=== PATIENT | female | born 1985 | race Hispanic/Latino ===

== ENCOUNTER → 2019-10-31 08:13 | Outpatient (CLI) | payer OTHER, SELFPAY ==
--- NOTE | 2019-10-31 | DI.MRI.S_ITS ---
PROCEDURE: MR LUMBAR SPINE WO CON INDICATIONS: Low back pain TECHNIQUE: Noncontrast sagittal T1 spin echo and T2 fast echo, sagittal STIR, axial T1 and T2 fast spin echo through the lumbar spine. In cases with scoliosis, additional coronal T2 fast spin echo may be performed. COMPARISON: [facility], CR, ABDOMEN 2 VIEW, 05/12/2010, 10:36. FINDINGS: Image quality: Excellent. Alignment and Curvature: There are 5 lumbar type vertebral bodies by plain film, with a transitional element at S1. The numbering system will be as denoted on the montage panel. Recommend correlation with plain films and the montage panel for numbering purposes prior to any lumbar spinal intervention. Bone Marrow: Marrow is of normal overall signal. No acute vertebral body compression fractures. Mild reactive signal within the endplates adjacent to the L5-S1 intervertebral disc. Spinal Cord: Conus medullaris terminates at the lower L2 level. Visualized cord demonstrates normal signal and size. Paraspinous Soft Tissues: No paravertebral masses. L1-L2: Normal appearance. L2-L3: Normal appearance. L3-L4: Normal appearance. L4-L5: Mild facet hypertrophy. No significant canal, nor foraminal stenosis. L5-S1: Moderate disc height loss and desiccation. Mild diffuse disc bulge. Mild bilateral facet hypertrophy. Mild canal stenosis. Mild left greater than right foraminal stenosis. IMPRESSION: 1. Transitional anatomy at the lumbosacral junction as described above. Recommend correlation with plain films and the montage panel for numbering purposes prior to any lumbar spinal intervention. 2. Multilevel degenerative disc and facet disease, as well as ligamentum flavum hypertrophy and epidural lipomatosis. 3. Mild multilevel canal and foraminal stenoses. No neural impingement. Dictated by: Lisseth Goodwin M.D. on 10/31/2019 at 8:41 Approved by: Lisseth Goodwin M.D. on 10/31/2019 at 8:45
== END ==
PROVIDERS: PCP Family Medicine; Referring Provider Family Medicine; Visit Provider Family Medicine
DX: M54.5 Low back pain (principal); M51.37 Other intervertebral disc degeneration, lumbosacral region; M48.07 Spinal stenosis, lumbosacral region; E88.2 Lipomatosis, not elsewhere classified
CPT/HCPCS: 72148

== ENCOUNTER 2020-10-13 13:00 | Emergency (ER) | payer OTHER, SELFPAY ==
[2020-10-13 13:03] VITALS: BP 124/93; PULSE 81; RESP 24; TEMP 37.1; O2SAT 100
--- NOTE | 2020-10-13 14:24 | DI.US.S_ITS ---
PROCEDURE: US PELVIC COMPLETE INDICATIONS: PAIN; POSSIBLE TORSION TECHNIQUE: Real-time scanning was performed of the pelvic organs, with image documentation. Additional endovaginal scanning was necessary due to incomplete visualization of the adnexal and endometrial structures by transabdominal scanning. COMPARISON: [facility], US, PELVIC COMPLETE, 08/04/2014, 16:06. FINDINGS: Uterus: Uterus is normal in size at 8.0 x 4.0 x 5.2 cm. The endometrium measures 8.4 mm in combined thickness. Ovaries: Both ovaries show appropriate vascularity without evidence of torsion. The right and left ovaries measure 4.2 x 3.9 x 3.0 cm and 5.4 x 3.2 x 4.0 cm respectively. There is a complex right ovarian cyst measuring 2.7 x 2.0 cm, probable hemorrhagic cyst, and there is a 4.1 x 3.7 cm left ovarian simple cyst present. Other: No pathologic free abdominal or pelvic fluid. IMPRESSION: 1. No evidence of ovarian torsion. 2. Complex right ovarian cyst 2.7 cm, probable hemorrhagic cyst 3. Left ovarian 4.1 cm simple cyst Dictated by: Marino Benedict M.D. on 10/13/2020 at 14:36 Approved by: Marino Benedict M.D. on 10/13/2020 at 14:38
--- NOTE | 2020-10-13 16:55 | ED_ITS ---
HPI - Abdominal Pain General Chief Complaint: Abdominal Pain Stated Complaint: lower ABD pain, sent by Monday Time Seen by Provider: 10/13/20 16:55 Source: patient Mode of arrival: Ambulatory History of Present Illness HPI narrative: This is a 35-year-old female who comes emergency department complaint of lower abdominal pain. Patient was sent here by Monday, patient's case was discussed with myself by physician treating her at the outside facility. Patient had lab works including CBC, CMP and lipase, point of care urine is well as testing which did not show any acute causes or findings patient had CT abdomen pelvis which did show ovarian cyst. Patient was sent for ultrasound to rule out torsion. Patient did have 1 Percocet prior to transfer. Patient is quite uncomfortable initially upon arrival. It has been many hours since she had any pain medication. Patient states she pain for several days, she has had nausea without vomiting. She has been afebrile. She denies chest pain or shortness of breath. Patient has not had any major changes to stool. She is not having any vaginal discharge or bleeding currently. She did have complaint of dysuria. Related Data Home Medications Medication Instructions Recorded Confirmed albuterol sulfate 90 mcg/actuation 1 puff IH PRN #0 11/23/12 03/31/20 aerosol inhaler (Proventil HFA) budesonide-formoterol HFA 80 2 puff INHALATION ONCE gram 09/25/18 03/31/20 mcg-4.5 mcg/actuation aerosol inhaler (Symbicort) Previous Rx's Medication Instructions Recorded oxycodone-acetaminophen 5 mg-325 1 tab PO Q6H PRN #10 tab 10/13/20 mg tablet (Percocet) Allergies Allergy/AdvReac Type Severity Reaction Status Date / Time Sulfa (Sulfonamide Allergy Verified 10/13/20 13:16 Antibiotics) From DILAUDID Allergy Unknown HIVES Uncoded 03/31/20 08:51 From VICODIN Allergy Unknown HIVES Uncoded 03/31/20 08:51 GLUTEN Allergy Unknown Uncoded 03/31/20 08:51 Latex Allergy Unknown RASH Uncoded 03/31/20 08:51 NAPROXEN Allergy Unknown HIVES/WHEEZ Uncoded 03/31/20 08:51 E WHEAT Allergy Unknown Uncoded 03/31/20 08:51 IBUPROFEN AdvReac Mild Uncoded 03/31/20 08:51 Review of Systems Review of Systems ROS Unobtainable: All systems reviewed & are unremarkable except as noted in HPI and below Patient History Surgical History Status post delivery (08/28/08) Status post delivery (11/23/12) Status post hernia repair Social History Smoking Status: Never smoker Smoking Status: Never smoker Exam Narrative Exam Narrative: GENERAL: Alert and oriented x three, female in mild distress. HEENT: Head normocephalic, atraumatic, EOMI, pupils reactive, face symmetric, moist mucous membranes NECK: Supple, full range of motion CARDIOVASCULAR: Regular rate and rhythm without murmurs, rubs or gallops. RESPIRATORY: Breath sounds equal bilaterally, no wheezes rales or rhonchi. ABDOMEN: Soft, nontender. Normoactive bowel sounds all 4 quadrants. No guarding or rebound, rigidity, no mass : No CVA tenderness EXTREMITIES: Normal range of motion, no clubbing or edema. Neurovascularly intact NEUROLOGICAL: Cranial nerves II through XII grossly intact. Moving all extremities SKIN: Warm, dry, no petechiae, no rashes or lesions. Initial Vital Signs Initial Vital Signs: Vital Signs Temperature 98.7 F 10/13/20 13:03 Pulse Rate 81 10/13/20 13:03 Respiratory Rate 24 10/13/20 13:03 Blood Pressure 124/93 H 10/13/20 13:03 Pulse Oximetry 100 10/13/20 13:03 Course Orders Ordered: Discontinued Medications Diphenhydramine HCl (Diphenhydramine 25 Mg Tablet) 25 mg PO NOW ONE Stop: 10/13/20 17:10 Last Admin: 10/13/20 17:14 Dose: 25 mg Documented by: LAMONT Oxycodone/Acetaminophen (Oxycodone/Acetaminophen 5/325 Tablet) 1 tab PO NOW ONE Stop: 10/13/20 17:10 Last Admin: 10/13/20 17:14 Dose: 1 tab Documented by: LAMONT Vital Signs Vital signs: Vital Signs - 8 hr 10/13/20 13:03 Temperature 98.7 F Pulse Rate 81 Respiratory Rate 24 Blood Pressure 124/93 H Pulse Oximetry 100 MDM - Abdominal Pain Imaging Data US - MEDIC TECHNICIAN: Radiologist's Impression: [address] [id number] ReportSigned Patient: Jordyn Hackett KMR#: [id number]: 1985Acct:[id number]/Sex: 35 / FDate of Service: 10/13/20Loc: EDAccession Number: [id number] Procedure: US pelvic complete Ordering Provider: Sarah Resendez D.O. PROCEDURE: US PELVIC COMPLETE INDICATIONS: PAIN; POSSIBLE TORSION TECHNIQUE: Real-time scanning was performed of the pelvic organs, with image documentation. Additional endovaginal scanning was necessary due to incomplete visualization of the adnexal and endometrial structures by transabdominal scanning. COMPARISON: [facility], US, PELVIC COMPLETE, 08/04/2014, 16:06. FINDINGS: Uterus: Uterus is normal in size at 8.0 x 4.0 x 5.2 cm. The endometrium measures 8.4 mm in combined thickness. Ovaries: Both ovaries show appropriate vascularity without evidence of torsion. The right and left ovaries measure 4.2 x 3.9 x 3.0 cm and 5.4 x 3.2 x 4.0 cm respectively. There is a complex right ovarian cyst measuring 2.7 x 2.0 cm, probable hemorrhagic cyst, and there is a 4.1 x 3.7 cm left ovarian simple cyst present. Other: No pathologic free abdominal or pelvic fluid. IMPRESSION: 1. No evidence of ovarian torsion. 2. Complex right ovarian cyst 2.7 cm, probable hemorrhagic cyst 3. Left ovarian 4.1 cm simple cyst Dictated by: Marino Benedict M.D. on 10/13/2020 at 14:36 Approved by: Marino Benedict M.D. on 10/13/2020 at 14:38 [facility] Narrative Medical decision making narrative: Patient's labs, point of care urine, urinalysis and CT imaging were all reviewed. Patient had some mesenteric adenitis, bilateral ovarian cysts. Report and labs were all sent with the patient and reviewed and confirmed by myself. Patient's ultrasound here shows no ovarian torsion, complex right ovarian cyst 2.7cm likely hemorrhagic and left ovarian 4.1cm simple cyst. Patient is uncomfortable but exam findings do not seem consistent with torsion. Patient states she had quite a bit of improvement with a dose of Percocet at the outside facility and a single dose was given here. Reviewed patient's findings. She does have a complex right ovarian cyst and we were discussed that this does need follow-up for further evaluation with OBGYN, she also has a left ovarian 4.1 cm simple cyst. All questions answered patient feels comfortable to return home at this time. Discharge Plan Departure Patient Disposition: Home Clinical Impression: Complex cyst of right ovary Instructions: DI for Ovarian Cyst Activity Restrictions/Additional Instructions: Follow up in the next 1-2 weeks for recheck of your ovarian cyst. Your imaging today shows a right ovarian cyst which is complex and appears to be hemorrhagic. This is likely the cause of your pain. Because your cyst is complex or has more than 1 portion we should have follow- up. It is noted you have left simple ovarian cyst. Take pain medications as prescribed. This medication can make you sleepy do not drive, perform hazardous activities or make any major decisions while taking it. This medication will make you constipated please take a stool softener once to twice daily until stools are soft and regular. Prescription [facility] Please return for fevers, rapidly worsening pain, lightheadedness or passing out, persistent vomiting, black or bloody stools or other new or concerning symptoms. Prescriptions: New oxycodone-acetaminophen [Percocet] 5-325 mg tablet 1 tab PO Q6H PRN (Reason: pain) Qty: 10 RF: 0 No Action albuterol sulfate [Proventil HFA] 90 MCG/PUFF HFA aerosol inhaler 1 puff IH PRN Qty: 0 RF: 0 Symbicort 80-4.5 mcg/actuation HFA aerosol inhaler 2 puff INHALATION ONCE RF: 0 Referrals: Sarah Reyna MD [Primary Care Provider] - Lauren Bowling MD [Physician] -
[2020-10-13] MEDS: OXYCODONE/ACETAMINOPHEN 5/325 TABLET 1 TAB PO (17:14)
[2020-10-13] MEDS: diphenhydrAMINE 25 MG TABLET PO (17:14)
[2020-10-13 17:48] VITALS: BP 148/78; PULSE 72; RESP 16; O2SAT 99
== END 2020-10-13 17:51 | disposition home or self-care (01) ==
PROVIDERS: Emergency Provider Emergency Medicine; PCP Family Medicine
DX: N83.291 Other ovarian cyst, right side (principal)
CPT/HCPCS: 76830; 76856; 99283

== ENCOUNTER → 2020-12-07 15:17 | Outpatient (CLI) | payer OTHER, SELFPAY ==
[2020-12-07 17:53] LABS: Cancer Antigen 125 7.9 U/mL (0-35)
[2020-12-07 17:59] LABS: Luteinizing Hormone 8.89 mIU/mL
== END ==
PROVIDERS: PCP Family Medicine; Referring Provider Obstetrics & Gynecology; Visit Provider Obstetrics & Gynecology
DX: N83.202 Unspecified ovarian cyst, left side (principal)
CPT/HCPCS: 36415; 83001; 83002; 86304

== ENCOUNTER → 2021-02-24 16:43 | Outpatient (CLI) | payer OTHER, SELFPAY ==
[2021-02-24 19:57] LABS: COVID19 -Nasal RAPID Negative (Negative)
== END ==
PROVIDERS: PCP Family Medicine; Referring Provider Specialist; Visit Provider Specialist
DX: Z01.812 Encounter for preprocedural laboratory examination (principal); Z20.822 Contact with and (suspected) exposure to COVID-19
CPT/HCPCS: 87635

== ENCOUNTER 2021-02-25 06:35 | Day surgery (SDC) | payer OTHER, SELFPAY ==
[2021-02-18 08:34] VITALS: BMI 43.0
[2021-02-25] VITALS (18 sets, daily range): BP systolic 107–130; BP diastolic 55–87; PULSE 59–104; RESP 12–20; TEMP 36.1–36.8; O2SAT 93–100; BMI 43.0
--- NOTE | 2021-02-25 | PATH_ITS ---
[facility] Accession Number: [id number] . 01 Material submitted: . PART A: endocervix - ENDOCERVICAL CURETTINGS PART B: endometrium - ENDOMETRIAL CURETTINGS . 02 Diagnosis: A. Endocervical Curettings: Portions of secretory endometrium; negative for glandular hyperplasia, cytologic atypia, or malignancy. Some endometrial fragments demonstrate prominent vessels, suggestive of polyp, if clinical and imaging studies are concordant. No definite endocervical tissue identified. Please see comment. . B. Endometrial Curettings: Portions of secretory endometrium; negative for glandular hyperplasia, cytologic atypia, or malignancy. Some endometrial fragments demonstrate prominent vessels, suggestive of polyp, if clinical and imaging studies are concordant. MRV 03/02/2021 1056 Local . 02 Comment: Part A: Due to the scant nature of this biopsy, it may not be entirely electronics parts sales representative of this patient's endocervix; additional sampling could be considered, if clinically appropriate. . 02 Electronically signed: . Genoveva Williamson MD, Pathologist NPI- [id number] . 01 Gross description: . A. Specimen A is received in formalin labeled endocervical curettings and consists of multiple lam-pink fragments of soft tissue, measuring 2.0 x 1.0 x 0.3 cm in aggregate. The specimen is filtered and entirely submitted in cassette A1. B. Specimen B is received in formalin labeled endometrial curettings and consists of multiple lam-pink fragments of soft tissue and clotted blood, measuring 2.5 x 1.5 x 0.3 cm in aggregate. The specimen is filtered and entirely submitted in cassette B1. ([id number]) /[facility] 02/26/2021 1805 Local . 02 Pathologist provided ICD-10: N85.00 . 02 CPT . 819248, 181722 Performed at: 01 [facility] [address] [place] [address], [place], [place] [id number] MD Garfield Morales MD Phone: [phone] Performed at: 02 [facility] [address] [place], [place] [id number] MD Viola Toro MD Phone: [phone]
[2021-02-25] MEDS: LACTATED RINGERS 1,000 ML 84 ML IV ×2 (06:44→09:14)
--- NOTE | 2021-02-25 07:37 | P.HP_ITS ---
History of Present Illness History of Present Illness Date Patient Seen: 02/25/21 Time Patient Seen: 07:37 Chief complaint: PELVIC Narrative: Patient is a 35-year-old 3 para 2 with a persistent left ovarian cyst and a cervical polyp. She presents for a laparoscopic removal of the left ovarian cyst and a D&C hysteroscopy with removal of the cervical polyp. Patient History Medical History (Updated 02/18/21 @ 08:41 by Elina Erwin RN) Thyroid disease Surgical History Status post delivery (08/28/08) Status post delivery (11/23/12) Status post hernia repair Family & Social History Social History: household members significant other Tobacco & Substance use: Smoking Status Never smoker alcohol intake current alcohol intake frequency holiday/special occasion Substance Use Type does not use Meds Home Medications and Allergies Home Medications Medication Instructions Recorded Confirmed Type albuterol sulfate 90 mcg/actuation 1 puff IH PRN #0 11/23/12 02/25/21 History aerosol inhaler (Proventil HFA) cetirizine 10 mg tablet (Zyrtec) 10 mg PO DAILY PRN 12/07/20 02/25/21 History fluticasone propionate 50 2 spray INTRANASAL DAILY 12/07/20 02/25/21 History mcg/actuation nasal spray,suspension thyroid (pork) 15 mg tablet 15 mg PO DAILY 12/07/20 02/25/21 History ([employer] Thyroid) budesonide-formoterol HFA 160 2 inh INHALATION DAILY 02/25/21 02/25/21 History mcg-4.5 mcg/actuation aerosol inhaler (Symbicort) Allergies Allergy/AdvReac Type Severity Reaction Status Date / Time naproxen [From Naprosyn] Allergy Intermediate Wheezing Verified 02/25/21 07:00 Sulfa (Sulfonamide Allergy Verified 02/25/21 06:56 Antibiotics) From DILAUDID Allergy Unknown HIVES Uncoded 02/25/21 06:56 From VICODIN Allergy Unknown HIVES Uncoded 02/25/21 06:56 GLUTEN Allergy Unknown Uncoded 02/25/21 06:56 Latex Allergy Unknown RASH Uncoded 02/25/21 06:56 NAPROXEN Allergy Unknown HIVES/WHEEZ Uncoded 02/25/21 06:56 E WHEAT Allergy Unknown Uncoded 02/25/21 06:56 IBUPROFEN AdvReac Mild Uncoded 02/25/21 06:56 Exam Vital Signs (past 8 hours): - 02/25/21 07:01 Temperature 98.3 F Pulse Rate 88 Respiratory Rate 16 Blood Pressure 125/80 Pulse Oximetry 98 Oxygen Delivery Method Room Air Narrative Exam Narrative: HEENT: [No thyromegaly, no anterior cervical or supraclavicular lymphadenopathy.] Lungs:[Clear to auscultation bilaterally, no wheezes.] Cardiovascular: [Regular rate and rhythm, no murmurs, rubs, or gallops]. Abdomen: [Well-healed Pfannenstiel scars. No hepatosplenomegaly. No masses palpable.] External genitalia: [Normal] Vagina: [Normal] Cervix: [Normal] Bimanual exam: 7 Week size anteverted uterus. Mobile. Extremities: No edema Assessment & Plan Assessment & Plan narrative: Assessment: 35-year-old 3 para 2 with a persistent left ovarian cyst and a cervical polyp Plan: Laparoscopic removal of a left ovarian cyst, D&C hysteroscopy with removal of a cervical polyp. The risks, benefits, and alternatives to the procedure were explained to the patient. The risks of the procedure including bleeding, infection, injury to the bowel, bladder, or ureters, or uterine perforation were explained to the patient. The patient understands these risks and agrees to proceed. A full par Q was held and consent form was signed. COVID-19 COVID-19 status: Negative Result date/Date tested (Pos, Neg/Pending): 02/24/21 Time Spent With Patient Time with patient: less than 30 minutes Critical Care time: I spent a total of [] minutes of critical care time on this patient's care today; this time is exclusive of procedural time.
--- NOTE | 2021-02-25 07:40 | PM.PREOP ---
Pre-operative Note COVID-19 COVID-19 status: Negative Result date/Date tested (Pos, Neg/Pending): 02/24/21 Interval Note History & Physical reviewed/Exam performed by Physician: Yes Changes to H&P: No H&P completed within 30 days and has changed as indicated here:: 02/25/21
--- NOTE | 2021-02-25 08:25 | SUR.OPER ---
Lithotomy on padded OR bed, head on pillow, arms secured on padded arm boards at <90 degrees abduction. Legs secured in padded yellow fins stirrups.
[2021-02-25] MEDS: BUPIVACAINE 0.5% (PF) 30 ML, EPINEPHrine 0.15 MG INJ (08:34)
--- NOTE | 2021-02-25 08:50 | PM.GYNOP.1 ---
Operative Date/Time/Diagnoses Date of procedure: 02/25/21 Time of procedure: 08:50 Pre-op diagnosis: Persistent left ovarian cyst Endocervical polyp Post-op diagnosis: same Procedure & Clinicians Procedure: Procedures Operation Date: 02/25/21 07:45 Actual Procedure Side Surgeon p Laparoscopic aspiration of left Ovarian Cyst Left Lauren Bowling MD s Hysteroscopy D&C W/ Removal of Cervical Polyp Lauren Bowling MD Indications: Persistent left ovarian cyst Endocervical polyp Surgeon: Lauren Bowling Anesthesia Type: General and Local Operative Notes Findings: 6 week size anteverted uterus Normal tubes Normal right ovary 3 cm simple left ovarian cyst Normal liver and gallbladder Closure Type: primary Specimen(s): endometrial curettings and other (Endocervical polyp) Estimated blood loss (mL): 10 Blood products transfused: none Procedure in detail: After informed consent was obtained, the patient was taken to the operating room where she was placed in the dorsal supine position. After adequate general endotracheal anesthesia was achieved, she was placed in the dorsal lithotomy position, and prepped and draped in the usual sterile fashion. A bivalve speculum was placed into the vagina and the anterior lip of the cervix grasped with a single-tooth tenaculum. The cervical os was sequentially dilated until the Zumi uterine manipulator could pass easily into the endometrial cavity. The single-tooth tenaculum was removed from the anterior lip of the cervix. The bivalve speculum was removed from the vagina. Attention was turned to the abdomen where 6 cc of 0.5% Marcaine with epinephrine were injected in the umbilical fold. A 5 mm incision was made. The Veress needle was placed into the peritoneal cavity, and its placement confirmed by aspiration and drop test. The abdominal cavity was insufflated with 4.0 L of CO2. The Veress needle was removed, and a long 5 mm trocar was placed without difficulty. A second incision was made 4 cm lateral to umbilicus on the left side after 6 cc of 0.5% Marcaine with epinephrine were injected. A 5 mm trocar was placed under direct visualization. The probe was used to identify both ovaries. There was a simple ovarian cyst on the left ovary the right ovary was normal. The tubes were normal. The uterus was normal. The gallbladder and liver were normal. Using the point aspirated her, the cyst was aspirated approximately 30 cc of clear yellow fluid. The Endo Rustam were used to open the cyst wall and the cyst wall was cauterized with the tip of the Endo Rustam. Hemostasis was achieved. The instruments were removed from the abdomen. The CO2 was allowed to escape. The incisions were closed with 4 0 Monocryl in a subcuticular fashion. Steri-Strips and Allevyn dressings were placed. Attention was then turned to the vagina where the Zumi uterine manipulator was removed from the uterus. The cervical os was further dilated to the # 8 Hegar dilator. The hysteroscope passed easily into the endometrial cavity. There were no polyps or fibroids noted in the endometrial cavity. Upon removal of the hysteroscope there was found to be a polyp in the endocervical canal. The hysteroscope was removed. A polyp forceps was used to remove the polyp. The single-tooth tenaculum was removed from the anterior lip of the cervix. The bivalve speculum was removed from the vagina. Sponge, lap, and instrument counts were correct x2. Patient tolerated the procedure well, and was taken to PACU in stable condition. Complications: none Post-operative Condition: stable Disposition: PACU Plan for aftercare: Home after recovery
--- NOTE | 2021-02-25 09:07 | SUR.PHASEI ---
At 0902 patient rouseable, able to spit out oral airway spo2 wnl before and after, neuro assessed a/o x 4 other neuro intact.
[2021-02-25] MEDS: ALBUTEROL/IPRATROPIUM 3 ML AMPUL INH (09:12)
[2021-02-25] MEDS: fentaNYL 100 MCG/2 ML INJ IV ×4 (09:18→10:04)
[2021-02-25] MEDS: diphenhydrAMINE 50 MG/ML VIAL 25 MG IV ×2 (09:41→10:24)
--- NOTE | 2021-02-25 09:45 | SUR.OPER ---
Bilateral arms tucked with gel pads.
[2021-02-25] MEDS: LORazepam 2 MG/ML INJ 0.5 MG IV (09:48)
[2021-02-25] MEDS: FAMOTIDINE 20 MG/2 ML VIAL IV (09:58)
--- NOTE | 2021-02-25 10:25 | SUR.PHASEI ---
Dr. Mckeon at bs to reeval pt, 25 benadryl and 2nd dose racemic epi ordered and given.
--- NOTE | 2021-02-25 11:02 | SUR.PHASEII ---
Assumed care from Laura, dressings and cam pad c/d/i. updated, pt with clear lungs, no SOB. drinking sonal johnie and eating crackers.
[2021-02-25] MEDS: OXYCODONE/ACETAMINOPHEN 5/325 TABLET 1 TAB PO (11:10)
--- NOTE | 2021-02-25 11:12 | SUR.PHASEII ---
Medicated for pain, tolerating po.
--- NOTE | 2021-02-25 15:14 | SUR.PHASEII ---
Late entry: Pt had been up to BR, steady on feet, voided w/o difficulty. Returned to bed c/o midsternal cheat pain, no SOB, VSS 122/73- 104- 98% [address] Mckeon called, pt's condition and VS reported, no new orders, pts chest pain resolved w/o treatment. Eventually left and left in stable condition.
== END 2021-02-25 12:30 | disposition home or self-care (01) ==
PROVIDERS: PCP Family Medicine; Referring Provider Obstetrics & Gynecology; Visit Provider Obstetrics & Gynecology
PROC: (CPT 58661; principal; 2021-02-25 07:45)
PROC: 0UDB8ZZ Extraction of Endometrium, Via Natural or Artificial Opening Endoscopic (ICD-10-PCS; CPT 58558; 2021-02-25 07:45)
DX: N83.292 Other ovarian cyst, left side (principal); N84.0 Polyp of corpus uteri; J45.909 Unspecified asthma, uncomplicated; E66.9 Obesity, unspecified; Z68.41 Body mass index [BMI] 40.0-44.9, adult
CPT/HCPCS: 49322; 58558; 81025; 94640; J0171; J1100; J1200; J1885; J2060; J2250; J2405; J2704; J3010

== ENCOUNTER → 2021-10-29 17:21 | Outpatient (CLI) | payer OTHER, SELFPAY ==
[2021-10-29 18:48] LABS: Cancer Antigen 125 5.9 U/mL (0-35)
== END ==
PROVIDERS: PCP Family Medicine; Referring Provider Obstetrics & Gynecology; Visit Provider Obstetrics & Gynecology
DX: N83.8 Other noninflammatory disorders of ovary, fallopian tube and broad ligament (principal)
CPT/HCPCS: 36415; 86304

== ENCOUNTER → 2022-06-02 08:38 | Outpatient (CLI) | payer OTHER, SELFPAY ==
--- NOTE | 2022-06-02 08:40 | DI.US.S_ITS ---
PROCEDURE: US PELVIC COMPLETE INDICATIONS: OVARIAN CYSTS TECHNIQUE: Real-time scanning was performed of the pelvic organs, with image documentation. Additional endovaginal scanning was necessary due to incomplete visualization of the adnexal and endometrial structures by transabdominal scanning. COMPARISON: [facility], US, US PELVIC COMPLETE, 10/29/2021, 17:14. FINDINGS: Uterus: Uterus is anteverted and normal in size at 8.2 x 3.7 x 4.6 cm. The myometrium is homogeneous. The endometrium measures 2.4 mm combined thickness. Ovaries: Right ovary measures 4.9 x 4.6 x 7.5 cm for a calculated volume of 88.9 cc. There is a large right ovarian simple cyst measures 5.0 x 3.7 x 4.6 cm. Otherwise unremarkable ovarian echotexture. Left ovary not visualized Other: No pathologic free abdominal or pelvic fluid. IMPRESSION: Large right ovarian simple cyst, 5 cm Nonvisualized left ovary Approved by: Marino Benedict M.D. on 06/02/2022 at 17:25
== END ==
PROVIDERS: PCP Family Medicine; Referring Provider Obstetrics & Gynecology; Visit Provider Obstetrics & Gynecology
DX: N83.291 Other ovarian cyst, right side; N83.292 Other ovarian cyst, left side
CPT/HCPCS: 76830; 76856; 93976

== ENCOUNTER → 2024-08-22 07:33 | Outpatient (CLI) | payer OTHER, SELFPAY ==
[2024-08-22 09:41] LABS: Cancer Antigen 125 < 5.5 U/mL (0-35)
== END ==
LOC: LAB 07:35
PROVIDERS: PCP Nurse Practitioner Family; Referring Provider Obstetrics & Gynecology; Visit Provider Obstetrics & Gynecology
DX: N83.292 Other ovarian cyst, left side (principal)
CPT/HCPCS: 36415; 86304